=== PATIENT | male | born 1960 ===

== ENCOUNTER 2025-04-12 11:00 | Emergency (ER) | payer MEDICARE, MEDICAID, SELFPAY ==
[2025-04-12 11:30] VITALS: BP 144/98; PULSE 122; RESP 18; TEMP 36.8; O2SAT 97; BMI 34.7
--- NOTE | 2025-04-12 11:34 | ED.MALEGU ---
HPI - Male Genitourinary General Chief complaint: Urogenital-Male Stated complaint: Unable to urinate Time Seen by Provider: 04/12/25 14:07 History of Present Illness ED Provider: Annamarie GOLD Narrative: The patient is a 64-year-old male who has been having problems with the urinary retention for the last 2 months after having had a left total knee replacement surgery. He has had a catheter intermittently for the last 2 months and he has also been on tamsulosin. At the moment he has been without a catheter for the last 2 weeks. He says that he went to his urology office ([facility]) today for some kind of testing for which he had to drink a lot of water. Apparently the patient was subsequently unable to urinate. He went home and was still unable to urinate. He called the urology office and they were having some kind of technical problem and did not feel they could see him today so he was referred to the emergency room. His tried to perform straight catheterization at home but she was unsuccessful. Therefore he came to the emergency room. He has had no fever, sweats, chills. Related Data Allergies Allergy/AdvReac Type Severity Reaction Status Date / Time No Known Allergies Allergy Verified 04/12/25 11:36 Review of Systems Review of Systems: Yes all other systems are reviewed and are negative [facility] Social History Social History Smoked in Last 30 Days: No Use of substances other than those prescribed or required for medical reasons: No Advance Directives: No Advance Directives Information Provided: No Do you have a plan to hurt others: No Plan Physical Exam Vital Signs: Vital Signs: Last Vital Signs Temp 98.2 F 04/12/25 17:35 Pulse 107 H 04/12/25 17:35 Resp 18 04/12/25 17:35 BP 113/67 04/12/25 17:35 Pulse Ox 97 04/12/25 17:35 O2 Del Method Room Air 04/12/25 17:35 BMI result Body Mass Index 34.7 Const: Other: The patient is a 64-year-old male who was awake and alert, pleasant and cooperative. He looks somewhat chronically ill but not obviously acutely ill although he looked mildly uncomfortable. HEENT: Other: The face is symmetrical. ?Mucous membranes moist. Eyes: Other: Pupils are round equal, conjunctivae are clear, extraocular movements intact Neck: Neck: Yes normal visual inspection and Yes full ROM Resp: Effort & Inspection: normal respiratory effort Auscultation: clear to auscultation bilaterally Cardio: Rate: regular rate Rhythm: regular rhythm Heart sounds: S1 normal heart sound present and S2 normal heart sound present GI: Other: The abdomen was soft. There was some fullness and tenderness in the suprapubic region. Skin: Other: The skin is dry and unremarkable Neuro: Other: The patient is awake and alert with a normal mental status. Cranial nerves are grossly intact. He moves his extremities symmetrically. Extrem: Other: The patient has a well-healed scar to the skin of the left knee. There is some mild generalized swelling to the left knee without warmth or erythema. There is some generalized tenderness however. Course Course Course Narrative: This is an RME: Additional HPI, ROS, PE not included below will be deferred to primary provider. RME assessment and note performed by: Charley Mueller PA-C This is a 15-swqo-hbw-male, with a hx of diabetes, who presents to the ER with a complaint of urinary retention. Patient tachycardic at 122, likely secondary to patient being uncomfortable due to likely urinary retention. Patient reports that he had TKR in February, states that he has had problems with urination since. He drank 2 large glasses of water for an ultrasound this morning for his bladder and he has been unable to urinate since. Suprapubic region is firm, mild tender to palpation. They attempted to straight cath him at home which he has never had before, reports that she saw blood and discontinued attempts. Plan: Labs, bladder scan, UA, further ER eval needed Medications Administered Discontinued Medications Generic Name Dose Route Start Last Admin Trade Name Freq PRN Reason Stop Dose Admin Magnesium Sulfate 2 gm in 50 mls @ 150 mls/hr 04/12/25 14:58 04/12/25 16:38 Magnesium Sulfate/H2o IV 04/12/25 15:17 Infused ONCE ONE Infusion Lidocaine HCl 10 ml 04/12/25 14:50 04/12/25 15:08 Lidocaine Hcl 2 % Urojet 10 Ml Jel.Pf.Sharif TOPICAL 04/12/25 14:51 10 ml ONCE ONE Administration Oxycodone HCl 5 mg 04/12/25 15:28 04/12/25 15:58 Oxycodone Hcl Immed Release 5 Mg Tablet PO 04/12/25 15:29 5 mg ONCE ONE Administration Medical Decision Making Medical Decision Making [facility] Narrative: The patient is a 64-year-old male who presents because of inability to void. Here he seems to be an urinary retention with a bladder volume of about 300 mL. He was not able to urinate. He had some discomfort. He was given a urinary catheter with decompression of his bladder. He felt better. There was no sign of a urinary tract infection. He requested a dose of oxycodone which is what he has been taking for his left knee pain since his surgery. This was provided. I think the patient may be discharged with a catheter in place. He is tamsulosin at home. He should take tamsulosin tonight. He should call his urology office in the morning. He should return if worse. Lab Data 04/12/25 11:57 04/12/25 11:57 Labs: Lab Results 04/12/25 04/12/25 Range/Units 11:57 16:10 WBC 9.8 (4.8-10.8) X10*3/uL RBC 4.38 L (4.60-5.80) X10*6/uL Hgb 13.2 L (14.0-18.0) g/dl Hct 39.1 L (42.0-52.0) % MCV 89.3 (80.0-98.0) fL MCH 30.1 (27.0-33.0) pg MCHC 33.8 (31.0-36.0) g/dl RDW 13.9 (11.0-16.0) % Plt Count 303 (160-400) X10*3/uL MPV 9.9 (9.4-12.4) fL Immature Gran % (Auto) 0.2 (0.0-0.4) % Neut % (Auto) 70.9 (45-73) % Lymph % (Auto) 19.2 L (20-40) % [place] % (Auto) 9.1 (2-11) % Eos % (Auto) 0.2 (0-4) % Baso % (Auto) 0.4 (0-2) % Lymph # (Auto) 1.9 (1.2-4.9) X10*3/uL [place] # (Auto) 0.9 (0.1-1.2) X10*3/uL Eos # (Auto) 0.0 (0.0-0.4) X10*3/uL Baso # (Auto) 0.0 (0.0-0.2) X10*3/uL Abs Immat Gran (auto) 0.02 (0.00-0.03) X10*3/uL Absolute Neuts (auto) 6.9 (2.0-8.3) x10*3/uL Absolute Nucleated RBC 0.000 (0.0-0.012) X10*3/uL Nucleated RBC % (auto) 0.0 (0.0-0.2) /100WBC Sodium 135 (135-145) mmol/L Potassium 3.7 (3.3-5.1) mmol/L Chloride 101 (96-108) mmol/L Carbon Dioxide 25 (22-29) mmol/L Anion Gap 13 (12-20) BUN 11 (9-16) mg/dL Creatinine 0.77 (0.5-1.4) mg/dL Estim Creat Clear Calc 90.9 Estimated GFR > 60 Random Glucose 111 (60-115) mg/dL Calcium 9.3 (8.4-10.2) mg/dL Magnesium 1.1 L* (1.6-2.6) mg/dL Total Bilirubin 1.1 H (0.0-1.0) mg/dL Direct Bilirubin 0.5 (0.0-0.5) mg/dL AST 22 (5-37) U/L ALT 22 (0-40) U/L Alkaline Phosphatase 53 (39-117) U/L Total Protein 7.2 (6.5-8.0) g/dL Albumin 4.5 (3.5-5.0) g/dL Urine Color Yellow Urine Appearance Clear Urine pH 5.5 (5.0-9.0) Ur Specific [place] 1.010 (1.005-1.025) Urine Protein Negative (Neg-Trace) mg/dL Urine Glucose (UA) Negative (Negative) mg/dL Urine Ketones 15 (Negative) mg/dL Urine Blood Large (3+) H (Negative) Urine Nitrite Negative (Negative) Ur Leukocyte Esterase Trace H (Negative) Urine RBC >20 H (0-2) /HPF Urine WBC 0-5 (0-5) /HPF Ur Squamous Epith Cells 0-2 (0-2) /HPF Urine Bacteria None Seen (None Seen) Hyaline Casts 0-2 (0-2) /LPF Discharge Plan Discharge Clinical Impression: Acute urinary retention Patient Disposition: Home, Self-Care Instructions: [place] Catheter Placement and Care (ED), How to Change a Catheter Drainage Bag (DC) Additional Instructions: Please continue your regular medications including the tamsulosin as recommended by the urology office. Please call the urology office in the morning for additional advice. Return to the emergency room if significantly worse. Referrals: [facility] [Outside] Interventions: ED Discharge Assessment Last Done: 04/12/25 17:35 Discharge Date/Time: 04/12/25 17:45 Print Language: Omani
--- NOTE | 2025-04-12 11:36 | ECG_ITS ---
Test Reason : ABD PAIN Blood Pressure : */* mmHG Vent. Rate : 110 BPM Atrial Rate : 110 BPM P-R Int : 134 ms QRS Dur : 88 ms QT Int : 326 ms P-R-T Axes : 20 4 13 degrees QTcB Int : 441 ms Sinus tachycardia Minimal voltage criteria for LVH, may be normal variant ( R in aVL ) Borderline ECG No previous ECGs available Referred By: Charley Mueller Electronically Signed By: NAEL MCCARTY
[2025-04-12 12:02] LABS: MANUAL DIFF FLAG NO
[2025-04-12 12:05] LABS: Hematocrit 39.1 % (42.0-52.0); Hemoglobin 13.2 g/dl (14.0-18.0); Imm Gran Abs Auto 0.02 X10*3/uL (0.00-0.03); Imm Gran Pct Auto 0.2 % (0.0-0.4); Lymphocytes Absolute Auto 1.9 X10*3/uL (1.2-4.9); Mean Corpuscular HGB Conc 33.8 g/dl (31.0-36.0); Mean Corpuscular Hemoglobin 30.1 pg (27.0-33.0); Mean Corpuscular Volume 89.3 fL (80.0-98.0); NRBC Abs Auto 0.000 X10*3/uL (0.0-0.012); NRBC Pct Auto 0.0 /100WBC (0.0-0.2); Platelet Count 303 X10*3/uL (160-400); Red Blood Count 4.38 X10*6/uL (4.60-5.80); White Blood Count 9.8 X10*3/uL (4.8-10.8)
[2025-04-12 12:23] LABS: Alanine Aminotransferase 22 U/L (0-40); Albumin Level 4.5 g/dL (3.5-5.0); Alkaline Phosphatase 53 U/L (39-117); Anion Gap 13 (12-20); Aspartate Amino Transferase 22 U/L (5-37); Blood Urea Nitrogen 11 mg/dL (9-16); Calcium 9.3 mg/dL (8.4-10.2); Carbon Dioxide 25 mmol/L (22-29); Chloride 101 mmol/L (96-108); Creatinine Clr Calc Pharmacy 90.9; Estimated Glomerular Filt Rate > 60; Potassium 3.7 mmol/L (3.3-5.1); Sodium 135 mmol/L (135-145); Total Protein 7.2 g/dL (6.5-8.0)
[2025-04-12] MEDS: Magnesium Sulfate/H2O 2 GM/50 ML PIGGYBACK IV (15:08)
[2025-04-12] MEDS: Lidocaine HCl 2 % Urojet 10 ML JEL.PF.APP TOPICAL (15:08)
--- OUTSIDE RECORDS SUMMARY | 2025-04-12 15:16 | XMS_ITS | Clinical Summary ---
Author Organization [facility] ity Address [address] [place] [address] Care Team Providers Care Manager Council Name Role Phone Matthew Robin MD Primary Care Provider [phone] Immunizations Immunization Administration Dates Next Due Moderna SARS-CoV-2 COVID-19, mRNA, LNP-S, preservative free 09/14/2020 Surgical History Surgery Date Site/Laterality Comments CHOLECYSTECTOMY PROCEDURE: HISTORICAL CHOLECYSTECTOMY Medical History Medical History Date Comments Other and unspecified hyperlipidemia 01/15/2006 DX:Other and unspecified hyperlipidemia Anxiety state, unspecified 01/15/2006 DX:An xiety state, unspecified Obesity, unspecified 01/15/2006 DX:Obesity, unspecified Family History Medical History Relation Name Comments Diabetes Brother 1 Alcohol/Drug Mother Diabetes Mother Hypertension Mother Diabetes Sister 1 Relation Name Status Comments Brother 1 Brother 2 Mother (Age 62) complicati ons from MVA and diabetes Sister 1 Sister 2 Social History Tobacco Use Types Packs/Day Years Used Date Smoking Tobacco: Never Alcohol Use Standard Drinks/Week Comments Yes 0 (1 standard drink = 0.6 oz pur e alcohol) Sex and Gender Information Value Date Recorded Sex Assigned at Not on file Legal Sex Male 9:48 PM EST Gender Identity Not on file Sexual Orientation Not on file Obstetrics History Plan of Treatment Health Maintenance Due Date Last Done Comments Colorectal Cancer Screening: Colonoscopy 1960 Pneumococcal Vaccine: 50+ Ye ars (1 of 1 - PCV) 09/11/2009 Zoster Vaccines (1 of 2) 09/11/2009 DTaP,Tdap,and Td Vaccines (2 - Td or Tdap) 01/16/2016 01/15/2006 Abdominal Aortic Aneurysm (A AA) Screen 06/25/2022 Cholesterol Screening (Lipid Panel) 06/25/2022 Hepatitis C Screening 06/25/2022 Social Influencers of Health Screening 06/25/2022 Depression Screening 07/13/2024 Falls Risk Assessment 09/11/2024 COVID-19 Vaccine (2 - 2024-2 6 season) 2025 09/14/2020 Influenza Vaccine (#1) 2025 RSV Immunization Adult Patie nts (1 - 1-dose 75+ series) 09/11/2034 HIB Vaccines Aged Out No longer eligi ble based on patient's age to complete this topic HPV Vaccines Aged Out No longer eligi ble based on patient's age to complete this topic Hepatitis A Vaccines Aged Out No long er eligible based on patient's age to complete this topic Hepatitis B Vaccines Aged Out No long er eligible based on patient's age to complete this topic IPV Vaccines Aged Out No longer eligi ble based on patient's age to complete this topic MMR Vaccines Aged Out No longer eligi ble based on patient's age to complete this topic Meningococcal ACWY Vaccine Aged Out N o longer eligible based on patient's age to complete this topic Meningococcal B Vaccine Aged Out No l onger eligible based on patient's age to complete this topic RSV Immunization Patients Un yinka 20 months Aged Out No longer eligible b ased on patient's age to complete this topic Varicella Vaccines Aged Out No longer eligible based on patient's age to complete this topic Advance Directives Documents on File Type Date Recorded Patient Vp Human Resources Expl anation Health Care Decision (hx) 03/27/2020 [place] DIRECTIVE Health Care Decision (hx) 03/27/2020 [place] DIRECTIVE Health Care Decision (hx) 03/27/2020 [place] DIRECTIVE Health Care Decision (hx) 03/27/2020 [place] DIRECTIVE Health Care Decision (hx) 03/27/2020 [place] DIRECTIVE Care Teams Manager Council Relationship Specialty Start Date End Date Matthew Robin MD [address] [place] [phone] PCP - General Internal Medicine 03/08/20
--- OUTSIDE RECORDS SUMMARY | 2025-04-12 15:16 | XMS_ITS | Clinical Summary ---
Author Organization [facility] Address [address] [place] [address] Care Team Providers Care Reel Assembler Name Role Phone Stefanie Carmichael Primary Care Provider [phone] Source Comments PLEASE NOTE, if this patient is a minor, it may be UNLAWFUL to discuss sensitive information that is contained in these records (such as FAMILY PLANNING, MENTAL HEALTH or SUBSTANCE ABUSE) with the minor patient's parent or other person without the patient's specific authorization.[facility] Allergies Active Allergy Reactions Criticality Noted Date Comments Nsaids (Non-Steroidal Anti-Inflammatory Drug) 02/11/2021 NSAID induced renal insufficiency. See Nephro note (11/2020). Avoid NSAID use for pain Medications leg brace (KNEE BRACE LARGE-XLARGE)Indic ations:Osteoarthri tis of both knees, unspecified osteoarthritis type 99 lifetime bilateral 2 Each 05/26/20 19 Active compress.stocking, knee,reg,lrgIndica tions:Peripheral edema Lifetime need. Please dispense 2 compression stockings (1 pair). 15-20 mmhg. Length: knee high regular. Size: large 2 Each 06/05/20 21 Active blood sugar diagnostic stripsIndications: Type 2 diabetes mellitus without complication, without long-term current use of insulin 1 Each daily Accu-Chek or True Metrix products. Once daily for glucose monitoring. 100 Each 07/09/20 22 Active capsaicin (ZOSTRIX) 0.075 % creamIndications:P rescription refill Apply topically 3 (three) times daily 120 g 11 02/20/20 23 Active sildenafiL (VIAGRA) 100 mg tablet TAKE ONE-FOURTH TO 1 TABLET BY MOUTH 45 TO 60 MINUTES PRIOR TO INTERCOURSE ON AN EMPTY STOMACH DIRECTED 10/25/19 24 Active alfuzosin ER (UROXATRAL) 10 mg 24 hr tablet Take 10 mg by mouth nightly at bedtime 08/26/19 24 Active cholecalciferol (VITAMIN D-3) 50 mcg (2,000 unit) tabletIndications: Prescription refill Take 1 Tablet by mouth once daily 90 Tablet 2 07/22/19 25 Active gabapentin (NEURONTIN) 300 mg capsuleIndications :Prescription refill Take 1 Capsule by mouth 3 (three) times daily 180 Capsule 3 07/22/19 25 Active tamsulosin (FLOMAX) 0.4 mg 24 hr capsuleIndications :Prescription refill Take 1 Capsule by mouth nightly at bedtime 90 Capsule 3 07/22/19 25 Active methocarbamoL (ROBAXIN) 750 mg tabletIndications: Prescription refill Take 1 Tablet by mouth 4 (four) times daily 90 Tablet 3 07/22/19 25 Active ACETAMINOPHEN EXTRA STRENGTH 500 mg tabletIndications: Prescription refill TAKE 1 TABLET BY MOUTH EVERY 6 HOURS NEEDED FOR PAIN 90 Tablet 09/16/19 [address] tabletIndications: Prescription refill Take 1 Tablet by mouth once daily 90 Tablet 3 10/13/19 25 Active lisinopriL 2.5 mg tabletIndications: Prescription refill Take 1 Tablet by mouth once daily 90 Tablet 3 10/13/19 25 Active terbinafine HCL (LAMISIL) 1 % creamIndications:P rescription refill,Jock itch Apply topically 2 (two) times daily 28.4 g 2 11/04/19 25 Active nystatin (MYCOSTATIN) 100,000 unit/gram powderIndications: Jock itch Apply topically 4 (four) times daily 15 g 1 11/04/19 25 Active blood-glucose meter monitoring kitIndications:Typ e 2 diabetes mellitus without complication, without long-term current use of insulin FREESTYLE GLUCOMETER FOR BS TESTING BID. 1 Each 01/28/20 25 Active alcohol swabsIndications:T ype 2 diabetes mellitus with stage 2 chronic kidney disease, without long-term current use of insulin FREESTYLE: FOR BS TESTING BID. 400 Each 3 01/28/20 25 Active busPIRone (BUSPAR) 7.5 mg tabletIndications: Anxiety Take 1 Tablet by mouth 2 (two) times daily. 60 Tablet 2 01/28/20 25 Active blood sugar diagnostic stripsIndications: Type 2 diabetes mellitus with stage 2 chronic kidney disease, without long-term current use of insulin USE 1 (ONE) FREESTYLE LITE TEST STRIP TO CHECK BLOOD SUGAR ONCE DAILY BEFORE BREAKFAST. E11.9. 30 Each 11 01/26/20 25 Active lancets 28 gaugeIndications:P rescription refill USE 1 (ONE) FREESTYLE LITE LANCET TO CHECK BLOOD SUGAR ONCE DAILY BEFORE BREAKFAST. E11.9. 30 Each 2 01/26/20 25 Active BD ALCOHOL SWABSIndications:T ype 2 diabetes mellitus with stage 2 chronic kidney disease, without long-term current use of insulin USE 1 SWAB TOPICALLY TWICE DAILY FOR BLOOD SUGAR 200 Each 01/28/20 25 Active atorvastatin (LIPITOR) 40 mg tabletIndications: Prescription refill Take 1 Tablet by mouth once daily. 90 Tablet 3 02/15/20 25 Active metFORMIN (GLUCOPHAGE) 850 mg tabletIndications: Prescription refill Take 1 Tablet by mouth 2 (two) times daily with a meal. 180 Tablet 3 02/15/20 25 Active docusate sodium (COLACE) 100 mg capsuleIndications :Slow transit constipation Take 1 Capsule by mouth 2 (two) times daily. 90 Capsule 1 02/15/20 25 Active polyethylene glycol, PEG, 3350 (GLYCOLAX) 17 gram/dose powderIndications: Slow transit constipation Take 17 g by mouth once daily. 510 g 5 02/15/20 25 Active pantoprazole (PROTONIX) 40 mg EC tabletIndications: Prescription refill Take 1 Tablet by mouth every morning before breakfast. 90 Tablet 1 03/15/20 25 Active diclofenac sodium (VOLTAREN) 1 % gel Apply 2 g topically 2 (two) times daily. 150 g 03/31/20 25 Active lidocaine (LIDODERM) 5 % patchIndications:P rescription refill Place 1 Patch onto the skin once daily (every 24 hours) 12 hours on and 12 hours off. 30 Patch 2 04/10/20 25 Active lidocaine (LIDODERM) 5 % patchIndications:P rescription refill Place 1 Patch onto the skin once daily (every 24 hours) 12 hours on and 12 hours off 30 Patch 2 05/06/20 24 025 Discontin ued(Reord er (E-Cancel Not Sent)) pantoprazole (PROTONIX) 40 mg EC tabletIndications: Prescription refill Take 1 Tablet by mouth every morning before breakfast 90 Tablet 1 07/22/19 025 Discontin ued(Reord er (E-Cancel Not Sent)) diclofenac sodium (VOLTAREN) 1 % gel Apply 2 g topically 2 (two) times daily. 2 g 03/29/20 25 025 Discontin ued(Reord er (E-Cancel Not Sent)) Active Problems Problem Noted Date Diagnosed Date Enlarged prostate without lo wer urinary tract symptoms (luts) 09/30/2022 Overview (09/30/2022): Saw Urology 05/2022. C/w tamsulosin. Prostate cancer screening negative. F/u in 1 year Age-related cataract of both eyes 09/30/2022 [facility]09[facility]30/2022): [facility]. Pt deferred surgery Glaucoma 09/30/2022 Overview (09/30/2022): Seeing [facility] - last seen 05/2022. Monitor for now Arteriosclerosis of coronary artery 08/13/2022 Mononeuropathy 11/17/2021 Low vitamin B12 level 11/17/2021 Idiopathic acute pancreatitis 09/18/2021 History of cholecystectomy 09/18/2021 History of COVID-19 07/22/2021 Peripheral edema 05/30/2021 CKD (chronic kidney disease) stage 2, GFR 60-89 ml/min 02/11/2021 Osteoarthritis of both knees 01/22/2021 Morbid (severe) obesity due to excess calories 0 10/30/2020 Vitamin D deficiency 10/30/2020 Shoulder pain, bilateral 11/03/2014 Overview (01/07/2015): Left shoulder pain,left- hydroxyapatite deposition disease. ANGÉLICA (obstructive sleep apnea) 01/24/2014 Tubular adenoma of colon 09/20/2013 Overview (09/20/2013): Colonoscopy-02/04/10-2 adenoma, rpt in 5 yrs-2014. Pre-diabetes 02/22/2013 Anxiety 02/22/2013 Dyslipidemia 02/22/2013 Resolved Problems Problem Noted Date Diagnosed Date Resolved Date Dysuria 09/26/2015 01/27/2018 Vitamin D deficiency disease 11/05/2014 01/27/2018 Gastritis 01/24/2014 01/27/2018 Mild vitamin D deficiency 09/20/2013 History of erectile dysfunction 09/20/2013 10/25/2013 Shoulder pain, left 02/22/2013 10/26/19 14 Hearing difficulty 02/22/2013 4 Encounters Date Type Department Care Team Description 03/29/2025 10:40 AM EDT Office Visit [address] [id number] María Carson NP 02/20/2025 Results Follow-Up [id number] [place] [phone] Sonia Gutierrez FNP 02/14/2025 3:40 PM EDT Office Visit [id number] [place] [phone] Sonia Gutierrez FNP 02/06/2025 9:40 AM EDT Office Visit [id number] [place] [phone] Allison Herring from Last 3 Months Immunizations Immunization Administration Dates Next Due Flu, Cell Culture based, Pre servative Free, 6m+, Flucelvax 04/01/2020,04/01/2020 Flu, Preservative Free 05/26/2019,2017,03/04/2017,03/18 Hep A, adult 11/06/2023 Hep B,adult,adjuvanted (HEPLISAV) 01/06/2024,01/2024 INFLUENZA, SEASONAL, INJECTABLE 04/13/20 21,04/13/2021,04/10/2015,04/26,05/25/2013 MODERNA COVID-19 VACCINE BIV ALENT, BLUE CAP, 6M+ 08/13/2022 Moderna COVID-19 (Spikevax), Mrna, Lnp-s, Pf, 50 Mcg/0.5 Ml, 12yr+ 07/09/2023 Moderna COVID-19 Vaccine, re d cap blue label, 12+ Primary Series 11/13/2021,06/05/2021,10/12/2020,09/14 PNEUMOCOCCAL CONJUGATE PCV 13 12/16/2018 PNEUMOCOCCAL POLYSACCHARIDE PPV23 (Pneumovax 23) 05/14/2021 TDAP 03/18/2016 ZOSTER VACCINE, RECOMBINANT (SHINGRIX) ,11/27/2020 Family History Medical History Relation Name Comments Diabetes Brother 2 Diabetes Mother Diabetes Sister 2 Relation Name Status Comments Brother 1 Alive Brother 2 Mother Sister 1 Alive Sister 2 Social History Tobacco Use Types Packs/Day Years Used Date Smoking Tobacco: Never Passive Smoke Exposure: Never Smokeless Tobacco: Never Tobacco Cessation:Counseling Given: Not Answered Alcohol Use Standard Drinks/Week Comments No 0 (1 standard drink = 0.6 oz pur e alcohol) ocassionally Social Connections Answer Date Recorded Connectedness 1 07/09/2023 Financial Resource Strain Answer Date R ecorded Financial Resource Strain 1 2022 Stress Answer Date Recorded Stress 1 07/09/2023 Physical Activity Answer Date Recorded Physical Activity 0 02/28/2019 Food Insecurity Answer Date Recorded Food 1 07/09/2023 Transportation Needs Answer Date Record ed Transportation 1 07/09/2023 Housing Stability Answer Date Recorded Housing 1 07/09/2023 Safety and Environment Answer Date Kel[place] rded Safety 1 07/09/2023 Utilities Answer Date Recorded Utilities 1 07/09/2023 Employment Answer Date Recorded Employment 0 02/28/2019 Sex and Gender Information Value Date Recorded Sex Assigned at Male 07/11/2017 7:02 AM PST Legal Sex Male 11:36 AM PDT Gender Identity Male 07/11/2017 7:02 AM PST Sexual Orientation Straight 07/11/2017 7: 02 AM PST Occupation Industry Job Start Date Job End Date employed Not on file Not on file Not on file Last Filed Vital Signs Vital Sign Reading Time Taken Comments Blood Pressure 130/82 03/29/2025 10:34 AM EDT Pulse 99 03/29/2025 10:34 AM EDT Temperature 36.4 C (97.6 F) 02/14/2025 3:54 PM EDT Respiratory Rate 18 03/29/2025 10:34 AM EDT Oxygen Saturation 99% 03/29/2025 10:34 AM EDT Inhaled Oxygen Concentration - - Weight 89.4 kg (197 lb) 03/29/2025 10:34 AM EDT Height 160 cm (5' 3 ) 02/14/2025 3:54 PM EDT Body Mass Index 34.9 02/14/2025 3:54 PM EDT Plan of Treatment Upcoming Encounters Date Type Department Care Team (Late st Contact Info) Description 08/10/2025 11:00 AM EST Office Visit [facility] [address] [place] [phone] Allison Herring [address] [place] [address] Health Maintenance Due Date Last Done Comments CT Colonography 09/11/2004 Fecal DNA 09/11/2004 Flexible Sigmoidoscopy 09/11/2004 FIT/gFOBT 02/13/2016 02/12/2015 (Lamar ged by Outside Provider) Colonoscopy 10/02/2023 10/01/2020 Colorectal Cancer Screening 10/02/2023 Diabetes Foot Exam 07/09/2024 07/09/2023, 0 02/03/2023, 05/14/2021, Additional history exists Val-ZNRHW-24 ( season) 2025 03/25/2024, 07/09/2023, 08/13/2022, Additional history exists Imm-Influenza (#1) 2025 03/19/2024, 1 07/29/2022, 03/16/2022, Additional history exists Retinopathy Screening 05/16/2025 05/16/2024 , 06/08/2023, 04/12/2021 (Managed by Outside Provider) Dental Perio Charting 08/10/2025 08/08/2024 , 12/19/2022, 06/20/2022 Dental Prophy 08/11/2025 02/06/2025, 07/14, 01/13/2024, Additional history exists Falls Prevention 09/22/2025 09/22/2024 Tobacco Screening 09/22/2025 09/22/2024, 02/03/2023 Hemoglobin A1c 12/29/2025 12/29/2024, 01/11, 10/08/2023, Additional history exists Dental BW 02/08/2026 02/06/2025, 07/14, 01/13/2024, Additional history exists Dental Examination 02/08/2026 02/06/2025, 0 08/08/2024, 01/13/2024, Additional history exists Anxiety Screening 02/14/2026 02/14/2025 HIV Screening 02/14/2026 02/14/2025, 10/12, 01/27/2018 Lipid Screening 02/14/2026 02/14/2025, 10/12, 11/27/2022, Additional history exists Medicare Annual Wellness Visit 02/14/2026 02/14/2025 Serum Creatinine 02/14/2026 02/14/2025, 04/2025, 03/15/2024, Additional history exists Syphilis Screening 02/14/2026 02/14/2025, 11/06/2023 Urine Albumin Creatinine Ratio Screening 02/14/2026 02/14/2025, 03/18/2023, 11/27/2022 Imm-Hepatitis A (2 of 2 - Risk 2-dose series) 02/15/2026 11/06/2023 Postponed from 05/07/2024 (Patient postponement) Imm-DTaP/Tdap/Td (2 - Td or Tdap) 03/18/2026 03/18/2016 Hypertension Screening (#1) 03/29/2026 Imm-Pneumococcal 50+ (3 of 3 - PCV20 or PCV21) 05/14/2026 05/14/2021, 12/16/2018 Dental FMX/Pano 12/22/2027 12/19/2022 Hepatitis C Screening Completed 01/27/2018 Imm-Zoster, Recombinant Completed 05/14/2021, 11/27 Imm-Hepatitis B Completed 01/06/2024, 11/17/2023 Alcohol and Drug Screen Completed 09/23/19, 11/06/2023, 10/08/2023, Additional history exists Depression Annual Screen Completed 025, 09/22/2024, 01/27/2018, Additional history exists Goals Goal Patient Goal Type Associated Problems Recent Progress Patient-Stated? Author Have 3 meals a day Diet Not on track(02/08/20 10:57 AM PDT) No Ilene Hernadez RD Reduce portion size Diet Not on track(02/08/20 10:57 AM PDT) No Ilene Hernadez RD Increase physical activity Exercise On track(02/08/20 10:57 AM PDT) No Ilene Hernadez RD Weight < 200 lb (90.719 kg) Weight 197 lb (89.4 kg)(03/29/2025 10:34 AM EDT) No Ilene Hernadez RD Procedures Procedure Name Priority Date/Time Associated Diagnosis Comments REFERRAL SCANNED DOCUMENT 04/06/2025 3:00 AM EDT REFERRAL SCANNED DOCUMENT 03/27/2025 3:00 AM EDT REFERRAL SCANNED DOCUMENT 03/24/2025 3:00 AM EDT REFERRAL SCANNED DOCUMENT 03/19/2025 3:00 AM EDT REFERRAL SCANNED DOCUMENT 03/08/2025 3:00 AM EDT SYPHILIS ANTIBODY CASCADING REFLEX Routine 02/14/2025 4:42 PM EDT Routine general medical examination at a health care facility HIV 1/2 AG & AB W/RFLX (4TH GEN) Routine 02/14/2025 4:42 PM EDT Routine general medical examination at a health care facility MICROALBUMIN/CREATININ E RATIO, URINE, RANDOM Routine 02/14/2025 4:42 PM EDT Routine general medical examination at a health care facility BLOOD COUNT COMPLETE AUTO&AUTO DIFRNTL WBC Routine 02/14/2025 4:42 PM EDT Routine general medical examination at a health care facility COMPREHENSIVE METABOLIC PANEL Routine 02/14/2025 4:42 PM EDT Routine general medical examination at a health care facility TSH W/RFLX FREE T4 Routine 02/14/2025 4: 42 PM EDT Routine general medical examination at a health care facility LIPID PANEL Routine 02/14/2025 4:42 PM EDT Routine general medical examination at a health care facility PERIODIC ORAL EVALUATION ESTABLISHED PATIENT Routine 02/06/2025 9:40 AM EDT Encounter for dental examination DENTAL CASE MANAGEMENT - MOTIVATIONAL INTV Routine 02/06/2025 9:40 AM EDT Encounter for dental examination PROPHYLAXIS - ADULT Routine 02/06/2025 9 :40 AM EDT Encounter for dental examination BITEWINGS - FOUR RADIOGRAPHIC IMAGES Routine 02/06/2025 9:40 AM EDT Encounter for dental examination CARIES RISK ASSESSMENT & DOC FINDING HIGH RISK Routine 02/06/2025 9:40 AM EDT Encounter for dental examination NUTRITIONAL COUNSELING CONTROL OF DENTAL DISEASE Routine 02/06/2025 9:40 AM EDT Encounter for dental examination ORAL HYGIENE INSTRUCTIONS Routine 02/06/2025 9:40 AM EDT Encounter for dental examination ORAL CANCER SCREENING Routine 02/06/2025 9:40 AM EDT Encounter for dental examination CASE PRESENTATION SUBS DTL & EXTENSIVE TX PLN Routine 02/06/2025 9:40 AM EDT Encounter for dental examination REFERRAL SCANNED DOCUMENT 02/01/2025 3:00 AM EDT HEMOGLOBIN GLYCOSYLATED A1C Routine 12/29/2024 8:42 AM EDT Prediabetes COMP PERIODONTAL EVALUATION - NEW/EST PATIENT Routine 08/08/2024 9:40 AM EST Encounter for dental examination EYE EXAM 05/16/2024 3:00 AM EST INTRAORAL - COMP SERIES OF RADIOGRAPHIC IMAGES Routine 12/19/2022 11:00 AM EDT Encounter for dental examination HISTORIC COLONOSCOPY 10/01/2020 12:00 AM EDT HEPATITIS C ANTIBODY Routine 01/27/2018 1:24 PM EDT Health care maintenance from Last 3 Months or Most Recently Relevant to Health Maintenance Results * REFERRAL SCANNED DOCUMENT (04/06/2025 3:00 AM EDT) Only the most recent of6 resultswithin the time period is included. 04/06/2025 3:00 AM EDT Stefanie HOPE SCAN REFERRAL Final Result * SYPHILIS ANTIBODY CASCADING REFLEX Routine (02/14/2025 4:42 PM EDT) Pathologist [facility] T. PALLIDUM AB, EIA NEGATIVE NEGATIVE 02/15/2025 12:16 PM EDT [employer] [facility] Blood Blood / Unknown 02/14/2025 4 :42 PM EDT 02/15/2025 4:07 AM EDT [employer] - 02/15/2025 12:23 PM EDT FASTING:NO . No antibodies to T. pallidum (the agent causing syphilis) were detected in the specimen. This result, however, does not exclude very recent T. pallidum infection; testing of a second specimen, collected 2-4 weeks after this specimen, is recommended if the index of suspicion for recent infection is high. . Sonia Gutierrez [facility] - BLOOD DRAW Final Resul t Performing Organization Address City/State/[facility] Co de Phone Number [facility] [employer] [address] [address], [facility] [address] [address] * HIV 1/2 AG & AB W/RFLX (4TH GEN) Routine (02/14/2025 4:42 PM EDT) [facility] HIV Screen Final SEE NOTE 02/15/2025 6:21 AM EDT [employer] [facility] [employer] [facility] HIV AG/AB, 4TH GEN NON-REACT GERMAN NON-REACT GERMAN 02/15/2025 6:21 AM EDT [facility] Blood Blood / Unknown 02/14/2025 4 :42 PM EDT 02/15/2025 4:01 AM EDT [employer] - 02/15/2025 6:31 AM EDT FASTING:NO HIV Negative . HIV-1 antigen and HIV-1/HIV-2 antibodies were not detected. There is no laboratory evidence of HIV infection. Sonia Gutierrez [facility] - BLOOD DRAW Final Resul t [facility] [address] [address], [employer] [address] [address] * TSH W/RFLX FREE T4 Routine (02/14/2025 4:42 PM EDT) TSH W/REFLEX TO FT4 0.76 0.40 - 4.50 mIU/L 02/15/2025 6:07 AM EDT [employer] [facility] Blood Blood / Unknown 02/14/2025 4 :42 PM EDT 02/15/2025 4:00 AM EDT [employer] [facility] - 02/15/2025 6:31 AM EDT FASTING:NO Sonia Gutierrez [facility] - BLOOD DRAW Final Resul t Performing Organization Address [facility] Co de Phone Number [facility] [address] [address], [employer] [address] [address] * MICROALBUMIN/CREATININE RATIO, URINE, RANDOM Urine Routine (02/14/2025 4:42 PM EDT) CREATININE, RANDOM URINE 105 20 - 320 mg/dL 02/15/2025 7:05 PM EDT [facility] MICROALBUMIN 0.2 mg/dL 02/15/2025 7:05 PM EDT [facility] MICROALBUMIN/CRE ATININE RATIO, RANDOM URINE 2 <30 mg/g creat 02/15/2025 7:05 PM EDT [facility] Urine Urine specimen / Unknown 02/14/2025 4:42 PM EDT 02/15/2025 4:16 AM EDT [employer] - 02/15/2025 7:06 PM EDT FASTING:NO Reference Range Not established . The ADA defines abnormalities in albumin excretion as follows: . Albuminuria Category Result (mg/g creatinine) . Normal to Mildly increased <30 Moderately increased 30-299 Severely increased > OR = 300 . The ADA recommends that at least two of three specimens collected within a 3-6 month period be abnormal before considering a patient to be within a diagnostic category. Sonia Gutierrez [facility] URINE AMBULATORY Final R esult [employer] [facility] [address] [address], [employer] [facility] [address] [place] [address] * (ABNORMAL) BLOOD COUNT COMPLETE AUTO&AUTO DIFRNTL WBC Routine (02/14/2025 4:42 PM EDT) [facility] WHITE BLOOD CELL COUNT 11.1(H) 3.8 - 10.8 Thousand/ uL 02/15/2025 2:05 AM EDT [facility] RED BLOOD CELL COUNT 4.84 4.20 - 5.80 Million/u L 02/15/2025 2:05 AM [employer] [facility] HEMOGLOBIN 14.7 13.2 - 17.1 g/dL 02/15/2025 2:05 AM [employer] [facility] HEMATOCRIT 44.9 38.5 - 50.0 % 02/15/2025 2:05 AM [employer] [facility] MCV 92.8 80.0 - 100.0 fL 02/15/2025 2:05 AM [employer] [facility] MCH 30.4 27.0 - 33.0 pg 02/15/2025 2:05 AM [employer] [facility] MCHC 32.7 32.0 - 36.0 g/dL 02/15/2025 2:05 AM [employer] [facility] RDW 12.2 11.0 - 15.0 % 02/15/2025 2:05 AM [employer] [facility] PLATELET COUNT 333 140 - 400 Thousand/ uL 02/15/2025 2:05 AM [employer] [facility] MPV 10.4 7.5 - 12.5 fL 02/15/2025 2:05 AM [facility] ABSOLUTE NEUTROPHILS 6,638 1,500 - 7,800 cells/uL 02/15/2025 2:05 AM [employer] [facility] ABSOLUTE LYMPHOCYTES 3,241 850 - 3,900 cells/uL 02/15/2025 2:05 AM [facility] ABSOLUTE MONOCYTES 1,010(H) 200 - 950 cells/uL 02/15/2025 2:05 AM EDT [facility] ABSOLUTE EOSINOPHILS 167 15 - 500 cells/uL 02/15/2025 2:05 AM EDT [facility] ABSOLUTE BASOPHILS 44 0 - 200 cells/uL 02/15/2025 2:05 AM EDT [facility] NEUTROPHILS PCT 59.8 % 2:05 AM EDT [facility] LYMPHOCYTES 29.2 % 02/15/2025 2:05 AM EDT [facility] MONOCYTES 9.1 % 02/15/2025 2:05 AM EDT [facility] EOSINOPHILS 1.5 % 02/15/2025 2:05 AM EDT [facility] BASOPHILS 0.4 % 02/15/2025 2:05 AM EDT [facility] Blood Blood / Unknown 02/14/2025 4 :42 PM EDT 02/15/2025 1:49 AM EDT Narrative [employer] [facility] - 02/15/2025 2:08 AM EDT FASTING:NO For adults, a slight decrease in the calculated MCHC value (in the range of 30 to 32 g/dL) is most likely not clinically significant; however, it should be interpreted with caution in correlation with other red cell parameters and the patient's clinical condition. us Sonia Gutierrez [facility] - BLOOD DRAW Final Resul t [facility] [address] [address], [employer] [facility] [address] [address] * LIPID PANEL Routine (02/14/2025 4:42 PM EDT) CHOLESTEROL, TOTAL 104 <200 mg/dL 02/15/2025 7:11 AM EDT [facility] HDL CHOLESTEROL 41 > OR = 40 mg/dL 02/15/2025 7:11 AM EDT [facility] TRIGLYCERIDES 102 <150 mg/dL 02/15/2025 7:11 AM EDT [facility] LDL-CHOLESTEROL 44 mg/dL (calc) 02/15/2025 7:11 AM EDT [facility] CHOL/HDLC RATIO 2.5 <5.0 (calc) 02/15/2025 7:11 AM EDT [facility] NON-HDL CHOLESTEROL 63 <130 mg/dL (calc) 02/15/2025 7:11 AM EDT [facility] Blood Blood / Unknown 02/14/2025 4 :42 PM EDT 02/15/2025 4:07 AM EDT Narrative [facility] - 02/15/2025 7:12 AM EDT FASTING:NO Reference range: <100 . Desirable range <100 mg/dL for primary prevention; <70 mg/dL for patients with CHD or diabetic patients with > or = 2 CHD risk factors. . LDL-C is now calculated using the Dulce calculation, which is a validated novel method providing better accuracy than the Friedewald equation in the estimation of LDL-C. Santosh TORRES et al. HEATHER. 2013;310(19): 4297-1105 (http://education.[employer]/faq/ODG293) For patients with diabetes plus 1 major ASCVD risk factor, treating to a non-HDL-C goal of <100 mg/dL (LDL-C of <70 mg/dL) is considered a therapeutic option. us Sonia Gutierrez [facility] - BLOOD DRAW Final Resul t [facility] [address] [address], [facility] [address] [address] * (ABNORMAL) COMPREHENSIVE METABOLIC PANEL Routine (02/14/2025 4:42 PM EDT) GLUCOSE 93 65 - 139 mg/dL 02/15/2025 7:11 AM EDT [facility] UREA NITROGEN (BUN) 9 7 - 25 mg/dL 02/15/2025 7:11 AM EDT [facility] CREATININE (blood) 0.96 0.70 - 1.35 mg/dL 02/15/2025 7:11 AM EDT [facility] EGFR 88 > OR = 60 mL/min/1. 73m2 02/15/2025 7:11 AM [facility] BUN/CREATININE RATIO SEE NOTE: 6 - 22 (calc) 02/15/2025 7:11 AM [facility] SODIUM 131(L) 135 - 146 mmol/L 02/15/2025 7:11 AM [facility] POTASSIUM 5.2 3.5 - 5.3 mmol/L 02/15/2025 7:11 AM [facility] CHLORIDE 93(L) 98 - 110 mmol/L 02/15/2025 7:11 AM [facility] CARBON DIOXIDE 31 20 - 32 mmol/L 02/15/2025 7:11 AM [facility] CALCIUM 10.1 8.6 - 10.3 mg/dL 02/15/2025 7:11 AM [facility] PROTEIN, TOTAL 7.3 6.1 - 8.1 g/dL 02/15/2025 7:11 AM [facility] ALBUMIN 4.6 3.6 - 5.1 g/dL 02/15/2025 7:11 AM [facility] GLOBULIN 2.7 1.9 - 3.7 g/dL (calc) 02/15/2025 7:11 AM [facility] ALBUMIN/GLOBULI N RATIO 1.7 1.0 - 2.5 (calc) 02/15/2025 7:11 AM [facility] BILIRUBIN, TOTAL 1.1 0.2 - 1.2 mg/dL 02/15/2025 7:11 AM [facility] ALKALINE PHOSPHATASE 51 35 - 144 U/L 02/15/2025 7:11 AM [facility] AST 21 10 - 35 U/L 02/15/2025 7:11 AM [facility] ALT 32 9 - 46 U/L 02/15/2025 7:11 AM [facility] Blood Blood / Unknown 02/14/2025 4 :42 PM EDT 02/15/2025 4:[address] [facility] - 02/15/2025 7:12 AM EDT FASTING:NO . Non-fasting reference interval . Not Reported: BUN and Creatinine are within reference range. . Sonia Gutierrez [facility] - BLOOD DRAW Final Resul t Performing Organization Address [facility]/ZIP Co de Phone Number [facility] [address] [address], [facility] [address] [address] * (ABNORMAL) HEMOGLOBIN GLYCOSYLATED A1C Routine (12/29/2024 8:42 AM EDT) HEMOGLOBIN A1C 6.0(H) <5.7 % [employer] [facility] Comment: For someone without known diabetes, a hemoglobin A1c value between 5.7% and 6.4% is consistent with prediabetes and should be confirmed with a follow-up test. For someone with known diabetes, a value <7% indicates that their diabetes is well controlled. A1c targets should be individualized based on duration of diabetes, age, comorbid conditions, and other considerations. This assay result is consistent with an increased risk of diabetes. Currently, no consensus exists regarding use of hemoglobin A1c for diagnosis of diabetes for children. Blood Blood / Unknown 12/29/2024 8 :42 AM EDT 12/29/2024 8:42 AM EDT Narrative [facility] - 12/30/2024 3:15 AM EDT FASTING:YES us Stefanie [facility] - BLOOD DRAW Final Result Performing Organization Address [facility] Co de Phone Number [facility] [address] [address], [facility] [address] [address] * EYE EXAM (05/16/2024 3:00 AM EST) 05/16/2024 3:0 0 AM EST us Stefanie HOPE OTHER Edited Result - Final * HISTORIC COLONOSCOPY (10/01/2020 12:00 AM EDT) 10/01/2020 us Nina [facility] PROCEDURES Final Result * HEPATITIS C ANTIBODY (01/27/2018 1:24 PM EDT) HEPATITIS C VIRUS SCREEN NEGATIVE NEGATIVE [facility] Blood specimen (specimen) Blood / Unknown 01/27/2018 1:24 PM EDT 01/27/2018 1:41 PM EDT Narrative [facility] - 01/27/2018 8:39 PM EDT [facility] [address] [place] [address] PT ID [id number] ORD# [id number] us Matthew Robin MD LAB - BLOOD DRAW Final Result [facility] [address] [place] [address], from Last 3 Months or Most Recently Relevant to Health Maintenance Insurance [employer] DENTAL [id number] [place] [address] [facility] MEDICARE - [place] [employer] 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
[2025-04-12 15:35] LABS: Magnesium 1.1 mg/dL (1.6-2.6)
[2025-04-12] MEDS: oxyCODONE HCl Immed Release 5 MG TABLET PO (15:58)
[2025-04-12 16:16] LABS: Appearance Urine Clear; Glucose Urine UA Negative (Negative); PH 5.5 (5.0-9.0); Specific Gravity - Urine 1.010 (1.005-1.025); UMIC TRIGGER UACC YES
[2025-04-12 17:33] VITALS: BP 113/67; PULSE 107; RESP 18; TEMP 36.8; O2SAT 97
[2025-04-12 17:35] VITALS: BP 113/67; PULSE 107; RESP 18; TEMP 36.8; O2SAT 97
== END 2025-04-12 17:45 | disposition home or self-care (01) ==
PROVIDERS: Physician Assistant Medical; Emergency Provider Emergency Medicine; PCP Dentist General Practice
DX: R33.9 Retention of urine, unspecified (principal); R00.0 Tachycardia, unspecified
CPT/HCPCS: 36415; 51701; 80048; 80076; 81001; 83735; 85025; 93005; 96365; 99285; J3475

== ENCOUNTER → 2025-04-12 11:36 | Outpatient (BNV) | payer MEDICARE, MEDICAID, SELFPAY | PROVIDERS: Emergency Provider Emergency Medicine; PCP Dentist General Practice; Visit Provider Internal Medicine | DX: R00.0 Tachycardia, unspecified (principal) | CPT/HCPCS: 93010 ==